=== PATIENT | male | born 1990 | race American Indian/Alaskan Native ===

== ENCOUNTER 2018-03-31 23:02 | Emergency (ER) | payer SELFPAY ==
[2018-03-31 23:17] VITALS: RESP 14
--- NOTE | 2018-03-31 23:25 | C.PDOC ---
History Of Present Illness 27 year old male with no PMHx presents to the ER via EMS for substance abuse. Patient admits to ETOH use and believes he smoked marijuana but is not sure. Patient is also unsure if he was with anyone when he was using. Denies other d rug use or medical complaints at this time. <Garcia Winters - Last Filed: 04/01/18 00:56> History Per: Patient, EMS History/Exam Limitations: no limitations Onset/Duration Of Symptoms: Hrs Current Symptoms Are (Timing): Still Present Suicide/Self Injury Attempted (Context): None Modifying Factor(s): Alcohol, Marijuana Recent travel outside of the [place]: No <Garcia Winters - Last Filed: 04/01/18 00:56> <Ann Hogue - Last Filed: 04/01/18 06:08> Time Seen by Provider: 03/31/18 23:21 Chief Complaint (Nursing): Substance Abuse Past Medical History Reviewed: Historical Data, Nursing Documentation, Vital Signs Vital Signs: Last Vital Signs Temp 97.2 F L 03/31/18 23:10 Pulse 84 03/31/18 23:10 Resp 14 03/31/18 23:10 BP 119/74 03/31/18 23:10 Pulse Ox 97 03/31/18 23:10 Family History: States: Unknown Family Hx - Social History Hx Alcohol Use: Yes Hx Substance Use: Yes - Immunization History Hx Tetanus Toxoid Vaccination: No (unknown) Hx Influenza Vaccination: No Hx Pneumococcal Vaccination: No <Garcia Winters - Last Filed: 04/01/18 00:56> Vital Signs: Last Vital Signs Temp 97.8 F 04/01/18 03:46 Pulse 66 04/01/18 03:46 Resp 14 04/01/18 03:46 BP 105/74 04/01/18 03:46 Pulse Ox 95 04/01/18 03:46 <Ann Hogue - Last Filed: 04/01/18 06:08> Review Of Systems Except As Marked, All Systems Reviewed And Found Negative. <Garcia Winters - Last Filed: 04/01/18 00:56> Physical Exam - Physical Exam Additional Physical Exam Comments: Gen: VS reviewed, alert, well developed, well nourished, nontoxic, mild distress Eye: EOMI, PERRL HENT: dry mucous membranes Neck: no JVD, supple, no adenopathy CV: regular rate, regular rhythm, no rubs, no murmur, S1, S2 Pulm: no distress, clear to auscultation, no wheeze, no rhonchi, breath sounds equal, no rales Abd: soft, nontender, no guarding, no rebound, no rigidity Extremities: no edema Skin: good color, no rash, no cyanosis Psych: somewhat confused Neuro: mild tremor to bilateral hands <Garcia Winters - Last Filed: 04/01/18 00:56> ED Course And Treatment - Laboratory Results Result Diagrams: 03/31/18 23:47 03/31/18 23:47 O2 Sat by Pulse Oximetry: 97 (Room air) Pulse Ox Interpretation: Normal <Garcia Winters - Last Filed: 04/01/18 00:56> - Laboratory Results Result Diagrams: 03/31/18 23:47 12 23:47 Pulse Ox Interpretation: Normal Reevaluation Time: 06:07 Reassessment Condition: Improved <Ann Hogue - Last Filed: 04/01/18 06:08> Medical Decision Making Medical Decision Makin patient seen for substance abuse and acute intoxication. patient is unsure of what he smoked tonight. patient admits to drinking alcohol. there is no physical evidence of trauma. 0047: patient re-eval at bedside, is awake and arousable to voice, patient still appears intoxicated but previously seen tremor has resolved. patient states that he does not have anybody to come pick him up. will observe to sobriety. case endorsed to dr. hogue, pending clinical reeval and dispo <Garcia Winters - Last Filed: 04/01/18 00:56> Disposition <Garcia Winters - Last Filed: 04/01/18 00:56> Counseled Patient/Family Regarding: Studies Performed, Diagnosis, Need For Followup - Disposition Disposition Time: 01:00 <Ann Hogue - Last Filed: 04/01/18 06:08> - Disposition Referrals: [facility] [Outside] Disposition: HOME/ ROUTINE Condition: FAIR Instructions: Alcohol Abuse and Alcoholism (DC) Forms: PsyQic (Maltese) - Clinical Impression Clinical Impression: Alcohol intoxication - Scribe Statement The provider has reviewed the documentation as recorded by the Scribhardeep Cervantes All medical record entries made by the Scribe were at my direction and personally dictated by me. I have reviewed the chart and agree that the record accurately reflects my personal performance of the history, physical exam, medical decision making, and the department course for this patient. I have also personally directed, reviewed, and agree with the discharge instructions and disposition. <Garcia Winters - Last Filed: 04/01/18 00:56>
[2018-03-31 23:51] LABS: BASO # 0.1 K/uL (0.0-0.2); BASO % 0.6 % (0.0-2.0); EOS # 0.1 K/uL (0.0-0.7); HEMOGLOBIN 13.7 g/dL (12.0-18.0); LYMPH # 2.4 K/uL (1.0-4.3); LYMPH % 28.2 % (20.0-40.0); MEAN CELL VOLUME 73.6 fL (80.0-94.0); MEAN CORPUSCULAR HEMOGLOBIN 23.4 pg (27.0-31.0); MEAN CORPUSCULAR HGB CONC 31.8 g/dL (33.0-37.0); MEAN PLATELET VOLUME 9.7 fL (7.2-11.7); MONO # 0.8 K/uL (0.0-0.8); MONO % 8.9 % (0.0-10.0); NEUT # 5.2 K/uL (1.8-7.0); NEUT % 61.3 % (50.0-75.0); NRBC % 0.1 % (0.0-2.0); RBC 5.83 Mil/uL (4.40-5.90); RED CELL DISTRIBUTION WIDTH 14.2 % (11.5-14.5); WHITE BLOOD COUNT 8.5 K/uL (4.8-10.8)
[2018-04-01 00:04] LABS: ALB/GLOB RATIO 1.5 (1.0-2.1); ALBUMIN 4.7 g/dL (3.5-5.0); ALT/SGPT 15 U/L (21-72); AST/SGOT 23 U/L (17-59); BLOOD UREA NITROGEN 10 mg/dL (9-20); CALCIUM 8.9 mg/dl (8.6-10.4); GFR NON-AFRICAN AMERICAN > 60
[2018-04-01 03:47] VITALS: TEMP 97.8; O2SAT 95
[2018-04-01 06:11] VITALS: BP 126/70; PULSE 64
== END 2018-04-01 06:17 | disposition home or self-care (01) ==
LOC: C.ER 23:02
DX: F10.129 Alcohol abuse with intoxication, unspecified (principal)
CPT/HCPCS: 36415; 80053; 82948; 85025; 99285; G0480